=== PATIENT | female | born 1995 | race Caucasian/White ===

== ENCOUNTER 2025-05-29 09:36 | Emergency (ER) | payer OTHER, SELFPAY ==
[2025-05-29 09:39] VITALS: BP 128/85; PULSE 85; TEMP 36.8; O2SAT 98; BMI 26.5
[2025-05-29 10:33] LABS: Hematocrit 43.9 % (36.0-48.0); Hemoglobin 14.8 g/dL (12.0-16.0); Immature Granulocytes Abs Auto 0.04 10^3/uL (0.00-0.03); Immature Granulocytes Pct Auto 0.4 % (0.0-0.5); Lymphocytes Absolute Auto 1.3 10^3/uL (1.2-3.8); Mean Corpuscular HGB Conc 33.7 g/dL (29.9-35.2); Mean Corpuscular Hemoglobin 27.9 pg (26.7-34.0); Mean Corpuscular Volume 82.7 fL (81.0-99.0); Platelet Count 246 10^3/uL (150-450); Red Blood Count 5.31 10^6/uL (4.20-5.40); White Blood Count 9.5 10^3/uL (4.0-11.0)
[2025-05-29 10:45] LABS: Alanine Aminotransferase 183 U/L (14-59); Albumin Globulin Ratio 1.3; Albumin Level 4.6 g/dL (3.4-5.0); Alkaline Phosphatase 74 U/L (46-116); Anion Gap 18.9; Aspartate Amino Transferase 97 U/L (15-37); Blood Urea Nitrogen 5.0 mg/dL (7.0-18.0); Calcium 9.4 mg/dL (8.5-10.1); Carbon Dioxide 22.1 mmol/L (21.0-32.0); Chloride 104 mmol/L (98-107); Estimated GFR (African America >60 (>=60 mL/min/1.73m^2); Estimated GFR (Non-African Ame >60 (>=60 mL/min/1.73m^2); Globulin 3.5 g/dL; Glucose 114 mg/dL (74-106); Potassium 4.0 mmol/L (3.5-5.1); Sodium 141 mmol/L (136-145); Total Protein 8.1 g/dL (6.4-8.2)
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
[2025-05-29 11:47] LABS: Glucose Urine UA NEGATIVE (NEGATIVE)
[2025-05-29 11:55] LABS: Cannabinoid Screen Urine NEGATIVE (NEGATIVE); Methamphetamines Screen Urine POSITIVE (NEGATIVE); Tricyclic Antidepressant Urine NEGATIVE (NEGATIVE)
[2025-05-29 12:00] LABS: Cast Seen? NONE SEEN #/LPF (NONE SEEN); Crystals Seen? None Seen #/HPF (None Seen); Urine Culture Indicated YES-FRMC
--- NOTE | 2025-05-29 12:51 | PC.NURSE ---
1220: this nurse and ER DR Bradley in room talking to pt about letting us help her. Pt presents like a panic attack. Refusing all treatments offered. Offered to help pt to bed and medicate het to help het calm down and rest. Pt keeps saying I just need a min . This nurse verbalized understanding with pt's request. Staff explains what medications we can use and how they l help. Pt just continues to sit in chair, rocking, shaking and holding her head. Pt asked if she is having any pain. Pt denies this and states I just need a minute . Pt request to walk outside of room, this request is denied and explained why pt is to stay in room at this time. Help is offered over and over again and pt continues to say the same thing over I just need a minute . This nurse and Er leave room to give the pt a min.
[2025-05-29 15:55] VITALS: PULSE 107; O2SAT 100
== END 2025-05-29 16:03 ==
PROVIDERS: Emergency Provider Emergency Medicine
DX: F29 Unspecified psychosis not due to a substance or known physiological condition (principal); F41.9 Anxiety disorder, unspecified
CPT/HCPCS: 36415; 80053; 80307; 80320; 81001; 84703; 85025; 87086; 87088; 99285